=== PATIENT | female | born 1975 | race Caucasian/White ===

== ENCOUNTER → 2018-04-30 | Outpatient (CLI) | payer MEDICAID ==
[~2018-04-30] MED LIST: AC500T; AC500T PO; ACHD5005 PO; ACYC200C PO; ALPR-557 PO; ALPR1T; ALPR1T PO; AMIT25TA9 PO; BUSP5TAB59 PO; BUSPAR 15 MG PO; BUTA1TAB46; BUTA1TAB46 PO; CHLO500T4 PO; CITA-105 PO; DICL75TA2 PO; DULO30CA PO; ETOD400T PO; GABA300T PO; GABA600T2 PO; GBPN600T PO; HYDR-229 PO; HYDR-2890 PO; HYDR-3720 PO; HYDR-3820; HYDR-3820 PO; HYDR118S10 PO; HYDR1TAB PO; IBP200T; IBUP-30 PO; LORA0.5T; MELO-195 PO; METH750T3 PO; NAPR-243 PO; OXYC-12 PO; PANT40TA2 PO; PARO40TA47; PRD20T PO; PRM25T PO; PROM25TA14 PO; PROP1TAB77; QUET100T69 PO; SUCR1TAB36 PO; SULF-222 PO; TIZA4TAB55 PO; TRAM50TA2 PO; TRM50T PO
[2018-04-30 12:38] LABS: BASOPHILS # (AUTO) 0.1 10^3/uL (0.0-0.1); BASOPHILS % (AUTO) 1 % (0-10); EOSINOPHILS # (AUTO) 0.3 10^3/uL (0.0-0.3); EOSINOPHILS % (AUTO) 3 % (0-10); HEMATOCRIT 24 % (35-52); HEMOGLOBIN 7.2 G/DL (11.5-16.0); LYMPHOCYTES % (AUTO) 19 % (12-44); MEAN CORPUSCULAR HEMOGLOBIN 19 PG (25-34); MEAN CORPUSCULAR HGB CONC 30 G/DL (32-36); MEAN CORPUSCULAR VOLUME 65 FL (80-99); MEAN PLATELET VOLUME 10.4 FL (7.4-10.4); MONOCYTES # (AUTO) 0.4 X 10^3 (0.0-1.0); MONOCYTES % (AUTO) 3 % (0-12); NEUTROPHILS # (AUTO) 8.1 X 10^3 (1.8-7.8); NEUTROPHILS % (AUTO) 75 % (42-75); PLATELET COUNT 525 10^3/uL (130-400); RED BLOOD COUNT 3.75 10^6/uL (4.35-5.85); RED CELL DISTRIBUTION WIDTH 20.8 % (10.0-14.5); WHITE BLOOD COUNT 10.8 10^3/uL (4.3-11.0)
== END ==
LOC: LAB 12:24
PROVIDERS: ATTEND Family Medicine
DX: D64.9 Anemia, unspecified (principal)
CPT/HCPCS: 36415; 85025

== ENCOUNTER 2018-05-17 05:50 | Outpatient (CLI) | payer MEDICAID ==
[~2018-05-17] VITALS: Ht 170.2 cm; Wt 106.6 kg
[2018-05-17] MEDS ORDERED: AMIT25TA9 PO (13:46)
[2018-05-17] MEDS ORDERED: ESCI10TA55 PO (13:46)
[2018-05-17] MEDS ORDERED: ZONI100C3 PO (13:46)
[2018-05-17] MEDS ORDERED: TOPI200T25 PO (13:46)
[2018-05-17] MEDS ORDERED: OMEP20CA12 PO (13:46)
== END 2018-05-17 13:47 | disposition home or self-care (01) ==
LOC: PREOP 05:50
PROVIDERS: ATTEND Surgery
DX: Z01.818 Encounter for other preprocedural examination (principal)

== ENCOUNTER 2018-05-21 11:59 | Day surgery (SDC) | payer MEDICAID ==
[~2018-05-21] VITALS: Ht 170.2 cm; Wt 106.6 kg
[~2018-05-21 11:59] MED LIST changes: +ESCI10TA55 PO; +OMEP20CA12 PO; +TOPI200T25 PO; +ZONI100C3 PO
[2018-05-21] MEDS ORDERED: LACTATED RINGERS 1,000 ML IV STA (12:08)
[2018-05-21] MEDS ORDERED: HURRICAINE EXT TUBE (BENZOCAINE) XX PRN (12:15)
[2018-05-21 12:43] VITALS: BP 123/84
[2018-05-21] MEDS ORDERED: MIDAZOLAM 2 MG/2 ML (VERSED) VIAL ONE (13:03)
[2018-05-21] MEDS ORDERED: PROPOFOL INJECTION 50 ML IV ONE ×2 (13:03→13:30)
[2018-05-21] MEDS ORDERED: LIDOCAINE PF 2% 5 ML (XYLOCAINE) VIAL ONE (13:13)
--- NOTE | 2018-05-21 13:13 | Progress Note-Pre Operative ---
Pre-Operative Progress Note H&P Reviewed The H&P was reviewed, patient examined and no changes noted. Time Seen by Provider: 13:09 Date H&P Reviewed: May 21, 2018 Time H&P Reviewed: 13:10 Pre-Operative Diagnosis: Iron Deficiency Anemia JORGE BEY DO May 21, 2018 13:13
--- NOTE | 2018-05-21 13:54 | Anesthesia-General Post-Op ---
MAC Patient Condition Mental Status/LOC: Same as Preop Cardiovascular: Satisfactory Nausea/Vomiting: Absent Respiratory: Satisfactory Pain: Controlled Complications: Absent Post Op Complications Complications None Follow Up Care/Instructions Patient Instructions None needed. Anesthesiology Discharge Order Discharge Order Patient is doing well, no complaints, stable vital signs, no apparent adverse anesthesia problems. No complications reported per nursing. ALEXANDER FONTANEZ CRNA May 21, 2018 13:54
--- NOTE | 2018-05-21 13:58 | Progress Note-Post Operative ---
Post-Operative Progess Note Surgeon (s)/Preschool Head Teacher (s) Surgeon JORGE BEY DO Preschool Head Teacher: RANDELL Driscoll Pre-Operative Diagnosis Iron Deficiency Anemia Post-Operative Diagnosis Gastritis Esophagitis Internal Hemorrhoids Procedure & Operative Findings Date of Procedure 05/21/18 Procedure Performed/Findings EGD with bx Colonoscopy Anesthesia Type IV sedation by ORACLE DATABASE DEVELOPER Estimated Blood Loss Estimated blood loss (mL): scant Specimens/Packing Specimens Removed antral bx GE jxn bx JORGE BEY DO May 21, 2018 13:57
--- NOTE | 2018-05-21 13:59 | Endoscopy Discharge Instruct ---
Endo Procedure/Findings Findings 1.: Gastritis 2.: Internal Hemorrhoids Discharge Instructions - Activity: You might feel a little sleepy until tomorrow. This is due to the medicine you received to relax you. Until tomorrow, you should: NOT drive a car, operate machinery or power tools. NOT drink any alcoholic beverages. NOT make any important decisions or sign importortant papers. Do not return to work until tomorrow, unless otherwise instructed. Resume previous activities tomorrow. Diet: Start by taking liquids. If you tolerate liquids, advance to solid food. make an appointment for one week Notify Physician - If you experience excessive bleeding, unusual abdominal pain, fever, or chest pain, contact your doctor immediately. Follow-Up: - I have received and understand the above instructions and will call my doctor if I have any further questions. Patient Signature Date Nurse Signature Other (Relationship) JORGE BEY DO May 21, 2018 13:59
[2018-05-21 14:05] VITALS: BP 95/52
[2018-05-21 14:35] VITALS: BP 120/77
[2018-05-21 14:40] VITALS: BP 120/77
--- NOTE | 2018-05-22 00:29 | OPERATIVE REPORT ---
DATE OF SERVICE: PREOPERATIVE DIAGNOSIS: Iron deficiency anemia. POSTOPERATIVE DIAGNOSES: 1. Gastritis. 2. Esophagitis. 3. Internal hemorrhoids. PROCEDURES: 1. EGD with biopsy. 2. Colonoscopy. SURGEON: Clyde Blackwell DO. TRADEMARK PARALEGAL: gavin Salter student level 3. ANESTHESIA: IV sedation by the BREAKDOWN MILL OPERATOR. SPECIMEN: One biopsy from antrum, one biopsy from the GE junction. BLOOD LOSS: Scant. FLUIDS: Per anesthesia. POSTOPERATIVE CONDITION: Stable. INDICATION FOR PROCEDURE: The patient is a 42-year-old female who has some iron deficiency anemia and prior workup of his upper and lower endoscopy. FINDINGS: The patient has some gastritis and esophagitis and some internal hemorrhoids, but no obvious source of bleeding or large amount of bleeding. PROCEDURE NOTE: After informed consent was obtained, the patient was brought to the endoscopy suite and placed in the left lateral decubitus position. She was administered IV sedation by the BREAKDOWN MILL OPERATOR, then monitored her vitals the entire time, heart rate, blood pressure and pulse ox started at the upper portion started advancing the scope down the mouth through the esophagus into the stomach. Upon entering the stomach, the antrum was little bit erythematous, pushed through to the duodenum. This looked fine. Backed up into the antrum, did a biopsy at the antrum and then retroflexed to look up. Did not really appear to have a hiatal hernia, possibly a very, very small wound. Pulled the scope back up into the GE junction, looked like there may have been some esophagitis and creeping up the GE junction. I did a biopsy here and then pulled the scope up the esophagus and out the mouth. Then switched gloves, switched cameras, went down below, started the colonoscopy, inserted the scope, pushed all the way to 150 cm, able to get to the cecum, took a picture of appendiceal orifice, noted the ileocecal valve and then slowly withdrew the scope insufflating to look circumferentially at the pool looking at the cecum, up the ascending colon to hepatic flexure, then down the transverse colon to the splenic flexure, then into the descending colon down through the sigmoid and then into rectum, retroflexed in rectal vault, saw some internal hemorrhoids. No other obvious pathology was seen. I removed the scope. The patient tolerated the procedure and she has recovered in the endoscopy suite. Job ID: [id number] DocumentID: [id number] Dictated Date: 05/21/2018 13:56:57 Spindle Tester Date: 05/22/2018 00:28:58 Dictated By: CLYDE BLACKWELL DO
== END 2018-05-21 14:44 | disposition home or self-care (01) ==
LOC: ENDO 11:59
PROVIDERS: ATTEND Surgery
DX: K29.70 Gastritis, unspecified, without bleeding (principal); K20.9 Esophagitis, unspecified; K64.8 Other hemorrhoids; D50.9 Iron deficiency anemia, unspecified; R63.4 Abnormal weight loss; M48.061 Spinal stenosis, lumbar region without neurogenic claudication; Z80.3 Family history of malignant neoplasm of breast; Z80.6 Family history of leukemia

== ENCOUNTER 2018-07-30 11:27 | Outpatient (RCR) | payer MEDICAID ==
[2018-05-09 12:09] LABS: ABSOLUTE RETIC # 60 10e9/L (24-90); BASOPHILS # (AUTO) 0.1 10^3/uL (0.0-0.1); BASOPHILS % (AUTO) 1 % (0-10); EOSINOPHILS # (AUTO) 0.2 10^3/uL (0.0-0.3); EOSINOPHILS % (AUTO) 2 % (0-10); HEMATOCRIT 28 % (35-52); HEMOGLOBIN 7.7 G/DL (11.5-16.0); LYMPHOCYTES # (AUTO) 1.9 X 10^3 (1.0-4.0); LYMPHOCYTES % (AUTO) 18 % (12-44); MEAN CORPUSCULAR HEMOGLOBIN 18 PG (25-34); MEAN CORPUSCULAR HGB CONC 28 G/DL (32-36); MEAN CORPUSCULAR VOLUME 65 FL (80-99); MEAN PLATELET VOLUME 10.4 FL (7.4-10.4); MONOCYTES # (AUTO) 0.5 X 10^3 (0.0-1.0); MONOCYTES % (AUTO) 4 % (0-12); NEUTROPHILS # (AUTO) 8.1 X 10^3 (1.8-7.8); NEUTROPHILS % (AUTO) 75 % (42-75); PLATELET COUNT 519 10^3/uL (130-400); RED CELL DISTRIBUTION WIDTH 20.2 % (10.0-14.5); RETICULOCYTE % 1.41 % (0.50-2.40); WHITE BLOOD COUNT 10.8 10^3/uL (4.3-11.0)
[2018-05-09 12:31] LABS: ALANINE AMINOTRANSFERASE 35 U/L (0-55); ALBUMIN 4.5 GM/DL (3.2-4.5); ALKALINE PHOSPHATASE 172 U/L (40-136); BILIRUBIN,TOTAL 0.2 MG/DL (0.1-1.0); BUN/CREATININE RATIO 7; CALCIUM 9.4 MG/DL (8.5-10.1); CARBON DIOXIDE 23 MMOL/L (21-32); CHLORIDE 107 MMOL/L (98-107); CREATININE SERUM 0.84 MG/DL (0.60-1.30); GFR ESTIMATED > 60; GLUCOSE 98 MG/DL (70-105); POTASSIUM 4.1 MMOL/L (3.6-5.0); SODIUM 140 MMOL/L (135-145)
[~2018-07-30 11:27] MED LIST changes: +FERRIC CARBOXYMALTOSE (CANCER) 750 MG in NS (IVPB) CANCER CENTER 250 ML IV SCH; -GABA600T2 PO
[2018-07-30 11:50] LABS: BASOPHILS # (AUTO) 0.1 10^3/uL (0.0-0.1); BASOPHILS % (AUTO) 1 % (0-10); EOSINOPHILS # (AUTO) 0.3 10^3/uL (0.0-0.3); EOSINOPHILS % (AUTO) 3 % (0-10); HEMATOCRIT 37 % (35-52); HEMOGLOBIN 11.4 G/DL (11.5-16.0); LYMPHOCYTES # (AUTO) 1.8 X 10^3 (1.0-4.0); LYMPHOCYTES % (AUTO) 20 % (12-44); MEAN CORPUSCULAR HEMOGLOBIN 25 PG (25-34); MEAN CORPUSCULAR HGB CONC 31 G/DL (32-36); MEAN CORPUSCULAR VOLUME 81 FL (80-99); MEAN PLATELET VOLUME 9.9 FL (7.4-10.4); MONOCYTES # (AUTO) 0.3 X 10^3 (0.0-1.0); MONOCYTES % (AUTO) 3 % (0-12); NEUTROPHILS # (AUTO) 6.9 X 10^3 (1.8-7.8); NEUTROPHILS % (AUTO) 74 % (42-75); PLATELET COUNT 373 10^3/uL (130-400); WHITE BLOOD COUNT 9.4 10^3/uL (4.3-11.0)
[2018-07-30 12:10] LABS: ALANINE AMINOTRANSFERASE 49 U/L (0-55); ALBUMIN 4.1 GM/DL (3.2-4.5); ALKALINE PHOSPHATASE 155 U/L (40-136); BILIRUBIN,TOTAL 0.2 MG/DL (0.1-1.0); BUN/CREATININE RATIO 10; CALCIUM 8.9 MG/DL (8.5-10.1); CARBON DIOXIDE 22 MMOL/L (21-32); CHLORIDE 108 MMOL/L (98-107); CREATININE SERUM 0.83 MG/DL (0.60-1.30); GFR ESTIMATED > 60; GLUCOSE 82 MG/DL (70-105); POTASSIUM 3.7 MMOL/L (3.6-5.0); SODIUM 140 MMOL/L (135-145); TOTAL PROTEIN 7.3 GM/DL (6.4-8.2)
== END 2018-08-01 11:03 | disposition home or self-care (01) ==
LOC: ONC 11:27
PROVIDERS: ATTEND Internal Medicine Hematology & Oncology
DX: D50.9 Iron deficiency anemia, unspecified (principal); Z79.899 Other long term (current) drug therapy
CPT/HCPCS: 36415; 80053; 82728; 83540; 83883; 84155; 84165; 85025; 85045; 96365; 99213; 99214

== ENCOUNTER 2018-09-26 12:42 | Outpatient (RCR) | payer MEDICAID ==
[2018-09-24 09:54] LABS: BASOPHILS % (AUTO) 0 % (0-10); EOSINOPHILS # (AUTO) 0.2 10^3/uL (0.0-0.3); EOSINOPHILS % (AUTO) 2 % (0-10); HEMATOCRIT 37 % (35-52); HEMOGLOBIN 11.7 G/DL (11.5-16.0); LYMPHOCYTES # (AUTO) 1.8 X 10^3 (1.0-4.0); LYMPHOCYTES % (AUTO) 16 % (12-44); MEAN CORPUSCULAR HEMOGLOBIN 28 PG (25-34); MEAN CORPUSCULAR HGB CONC 32 G/DL (32-36); MEAN CORPUSCULAR VOLUME 87 FL (80-99); MEAN PLATELET VOLUME 10.2 FL (7.4-10.4); MONOCYTES # (AUTO) 0.3 X 10^3 (0.0-1.0); MONOCYTES % (AUTO) 3 % (0-12); NEUTROPHILS # (AUTO) 8.5 X 10^3 (1.8-7.8); NEUTROPHILS % (AUTO) 79 % (42-75); PLATELET COUNT 344 10^3/uL (130-400); RED CELL DISTRIBUTION WIDTH 15.9 % (10.0-14.5); WHITE BLOOD COUNT 10.9 10^3/uL (4.3-11.0)
[2018-09-24 10:18] LABS: ALANINE AMINOTRANSFERASE 73 U/L (0-55); ALKALINE PHOSPHATASE 171 U/L (40-136); BILIRUBIN,TOTAL 0.1 MG/DL (0.1-1.0); BUN/CREATININE RATIO 7; CALCIUM 9.5 MG/DL (8.5-10.1); CARBON DIOXIDE 24 MMOL/L (21-32); CHLORIDE 110 MMOL/L (98-107); CREATININE SERUM 0.83 MG/DL (0.60-1.30); GFR ESTIMATED > 60; GLUCOSE 126 MG/DL (70-105); POTASSIUM 3.4 MMOL/L (3.6-5.0); SODIUM 142 MMOL/L (135-145); TOTAL PROTEIN 6.9 GM/DL (6.4-8.2)
[~2018-09-26 12:42] MED LIST changes: -FERRIC CARBOXYMALTOSE (CANCER) 750 MG in NS (IVPB) CANCER CENTER 250 ML IV SCH
== END 2018-10-30 | disposition home or self-care (01) ==
LOC: ONC 12:42
PROVIDERS: ATTEND Internal Medicine Hematology & Oncology
DX: D50.9 Iron deficiency anemia, unspecified (principal); Z79.899 Other long term (current) drug therapy
CPT/HCPCS: 36415; 80053; 82728; 83540; 85025; 99213

== ENCOUNTER → 2018-11-26 | Outpatient (CLI) | payer MEDICAID ==
[2018-11-26 22:42] LABS: BARBITURATES URINE QUAL DS Negative; BENZODIAZEPINE URINE QUAL DS Negative
[2018-11-27 07:48] LABS: AMPHETAMINES URINE QUAL DS Negative
== END ==
LOC: LAB 09:49
PROVIDERS: ATTEND Family Medicine
DX: Z51.81 Encounter for therapeutic drug level monitoring (principal); Z79.891 Long term (current) use of opiate analgesic
CPT/HCPCS: 36415; 80307

== ENCOUNTER 2018-11-28 13:47 | Outpatient (RCR) | payer MEDICAID ==
[2018-11-26 10:40] LABS: BASOPHILS # (AUTO) 0.1 10^3/uL (0.0-0.1); BASOPHILS % (AUTO) 1 % (0-10); EOSINOPHILS # (AUTO) 0.3 10^3/uL (0.0-0.3); EOSINOPHILS % (AUTO) 3 % (0-10); HEMATOCRIT 38 % (35-52); HEMOGLOBIN 12.2 G/DL (11.5-16.0); LYMPHOCYTES # (AUTO) 1.9 X 10^3 (1.0-4.0); LYMPHOCYTES % (AUTO) 19 % (12-44); MEAN CORPUSCULAR HEMOGLOBIN 28 PG (25-34); MEAN CORPUSCULAR HGB CONC 32 G/DL (32-36); MEAN CORPUSCULAR VOLUME 87 FL (80-99); MEAN PLATELET VOLUME 10.3 FL (7.4-10.4); MONOCYTES # (AUTO) 0.3 X 10^3 (0.0-1.0); MONOCYTES % (AUTO) 3 % (0-12); NEUTROPHILS # (AUTO) 7.4 X 10^3 (1.8-7.8); NEUTROPHILS % (AUTO) 75 % (42-75); PLATELET COUNT 291 10^3/uL (130-400); RED CELL DISTRIBUTION WIDTH 15.4 % (10.0-14.5); WHITE BLOOD COUNT 9.9 10^3/uL (4.3-11.0)
[2018-11-26 11:05] LABS: ALANINE AMINOTRANSFERASE 53 U/L (0-55); ALBUMIN 4.4 GM/DL (3.2-4.5); ALKALINE PHOSPHATASE 187 U/L (40-136); BILIRUBIN,TOTAL 0.2 MG/DL (0.1-1.0); BUN/CREATININE RATIO 8; CALCIUM 9.3 MG/DL (8.5-10.1); CARBON DIOXIDE 21 MMOL/L (21-32); CHLORIDE 108 MMOL/L (98-107); CREATININE SERUM 0.97 MG/DL (0.60-1.30); GFR ESTIMATED > 60; GLUCOSE 108 MG/DL (70-105); POTASSIUM 3.8 MMOL/L (3.6-5.0); SODIUM 138 MMOL/L (135-145); TOTAL PROTEIN 8.1 GM/DL (6.4-8.2)
[~2018-11-28 13:47] MED LIST changes: -OMEP20CA12 PO; +OMEP20CA13 PO
== END 2019-02-24 | disposition home or self-care (01) ==
LOC: ONC 13:47
PROVIDERS: ATTEND Internal Medicine Hematology & Oncology
DX: D50.9 Iron deficiency anemia, unspecified (principal); Z79.899 Other long term (current) drug therapy
CPT/HCPCS: 36415; 80053; 82728; 83540; 85025; 99213

== ENCOUNTER 2019-04-17 10:48 | Outpatient (RCR) | payer MEDICAID ==
[2019-04-15 11:43] LABS: BASOPHILS # (AUTO) 0.1 10^3/uL (0.0-0.1); BASOPHILS % (AUTO) 1 % (0-10); EOSINOPHILS # (AUTO) 0.5 10^3/uL (0.0-0.3); EOSINOPHILS % (AUTO) 5 % (0-10); HEMATOCRIT 36 % (35-52); HEMOGLOBIN 11.7 G/DL (11.5-16.0); LYMPHOCYTES # (AUTO) 2.5 X 10^3 (1.0-4.0); LYMPHOCYTES % (AUTO) 23 % (12-44); MEAN CORPUSCULAR HEMOGLOBIN 28 PG (25-34); MEAN CORPUSCULAR HGB CONC 32 G/DL (32-36); MEAN CORPUSCULAR VOLUME 86 FL (80-99); MEAN PLATELET VOLUME 10.9 FL (7.4-10.4); MONOCYTES # (AUTO) 0.4 X 10^3 (0.0-1.0); MONOCYTES % (AUTO) 3 % (0-12); NEUTROPHILS # (AUTO) 7.4 X 10^3 (1.8-7.8); NEUTROPHILS % (AUTO) 69 % (42-75); PLATELET COUNT 348 10^3/uL (130-400); RED CELL DISTRIBUTION WIDTH 15.4 % (10.0-14.5); WHITE BLOOD COUNT 10.9 10^3/uL (4.3-11.0)
[2019-04-15 12:05] LABS: ALANINE AMINOTRANSFERASE 55 U/L (0-55); ALBUMIN 4.1 GM/DL (3.2-4.5); ALKALINE PHOSPHATASE 152 U/L (40-136); BILIRUBIN,TOTAL 0.2 MG/DL (0.1-1.0); BUN/CREATININE RATIO 12; CALCIUM 9.2 MG/DL (8.5-10.1); CARBON DIOXIDE 21 MMOL/L (21-32); CHLORIDE 106 MMOL/L (98-107); CREATININE SERUM 0.98 MG/DL (0.60-1.30); GFR ESTIMATED > 60; GLUCOSE 108 MG/DL (70-105); POTASSIUM 4.3 MMOL/L (3.6-5.0); SODIUM 139 MMOL/L (135-145); TOTAL PROTEIN 7.3 GM/DL (6.4-8.2)
[~2019-04-17 10:48] MED LIST changes: +OMEP-280 PO; -OMEP20CA13 PO
== END 2019-07-14 | disposition home or self-care (01) ==
LOC: ONC 10:48
PROVIDERS: ATTEND Internal Medicine Hematology & Oncology
DX: D50.9 Iron deficiency anemia, unspecified (principal); I10 Essential (primary) hypertension; M19.90 Unspecified osteoarthritis, unspecified site; R74.0 Nonspecific elevation of levels of transaminase and lactic acid dehydrogenase [LDH]; R51 Headache; Z85.3 Personal history of malignant neoplasm of breast; Z90.710 Acquired absence of both cervix and uterus; Z98.890 Other specified postprocedural states
CPT/HCPCS: 36415; 80053; 82728; 83540; 85025; 99213

== ENCOUNTER 2019-08-21 12:43 | Outpatient (RCR) | payer MEDICAID ==
[2019-08-19 14:15] LABS: BASOPHILS % (AUTO) 0 % (0-10); EOSINOPHILS # (AUTO) 0.3 10^3/uL (0.0-0.3); EOSINOPHILS % (AUTO) 3 % (0-10); HEMATOCRIT 38 % (35-52); HEMOGLOBIN 11.9 G/DL (11.5-16.0); LYMPHOCYTES # (AUTO) 2.6 X 10^3 (1.0-4.0); LYMPHOCYTES % (AUTO) 22 % (12-44); MEAN CORPUSCULAR HEMOGLOBIN 28 PG (25-34); MEAN CORPUSCULAR HGB CONC 31 G/DL (32-36); MEAN CORPUSCULAR VOLUME 88 FL (80-99); MEAN PLATELET VOLUME 10.4 FL (7.4-10.4); MONOCYTES # (AUTO) 0.6 X 10^3 (0.0-1.0); MONOCYTES % (AUTO) 5 % (0-12); NEUTROPHILS # (AUTO) 8.3 X 10^3 (1.8-7.8); NEUTROPHILS % (AUTO) 70 % (42-75); PLATELET COUNT 334 10^3/uL (130-400); RED CELL DISTRIBUTION WIDTH 15.6 % (10.0-14.5)
[2019-08-19 14:34] LABS: ALBUMIN 4.3 GM/DL (3.2-4.5); BILIRUBIN,TOTAL 0.2 MG/DL (0.1-1.0); CALCIUM 11.1 MG/DL (8.5-10.1); CREATININE SERUM 1.07 MG/DL (0.60-1.30); POTASSIUM 4.4 MMOL/L (3.6-5.0); TOTAL PROTEIN 7.8 GM/DL (6.4-8.2)
[~2019-08-21 12:43] MED LIST changes: +ACHYD1T; +ACHYD1T PO; -HYDR-3820; -HYDR-3820 PO; -OMEP-280 PO; +OMEP20CA18 PO; +QUET100T33 PO; -QUET100T69 PO; +ZONI100C29 PO; -ZONI100C3 PO
== END 2019-11-17 | disposition home or self-care (01) ==
LOC: ONC 12:43
PROVIDERS: ATTEND Internal Medicine Hematology & Oncology
DX: D50.9 Iron deficiency anemia, unspecified (principal); I10 Essential (primary) hypertension; M19.90 Unspecified osteoarthritis, unspecified site; R74.0 Nonspecific elevation of levels of transaminase and lactic acid dehydrogenase [LDH]; R51 Headache; Z85.3 Personal history of malignant neoplasm of breast; Z90.710 Acquired absence of both cervix and uterus; Z98.890 Other specified postprocedural states; E83.52 Hypercalcemia
CPT/HCPCS: 80053; 82728; 83540; 85025; 99213

== ENCOUNTER → 2021-07-12 | Outpatient (CLI) | payer MEDICAID ==
[~2021-07-12] MED LIST changes: +ESCI-2 PO; -ESCI10TA55 PO; -ETOD400T PO; +ETOD400T3 PO
--- NOTE | 2021-07-12 13:00 | Diagnostic Imaging Report ---
Indication: Fall with left ankle injury and pain AP, oblique and lateral views of the left ankle are obtained. Comparison is made to study of 01/05/2011 No fracture or malalignment is identified. There is no lytic or sclerotic focus. There has been development of enthesophytes along the posterior and plantar aspect of the calcaneus. IMPRESSION: No acute abnormality. Dictated by: Dictated on workstation # [id number]
--- NOTE | 2021-07-12 13:02 | Diagnostic Imaging Report ---
INDICATION: Left foot pain for 2 weeks. TIME OF EXAM: 12:47 PM 3 views of the left foot were obtained. Metatarsals and phalanges are intact. Midfoot and hindfoot are unremarkable apart from a plantar calcaneal spur. No fractures are seen. IMPRESSION: No acute bony abnormality is detected. Dictated by: Dictated on workstation # [id number]
== END ==
LOC: RAD 12:00
PROVIDERS: ATTEND Family Medicine
DX: S99.912A Unspecified injury of left ankle, initial encounter (principal); X58.XXXA Exposure to other specified factors, initial encounter
CPT/HCPCS: 73610; 73630

== ENCOUNTER → 2023-01-18 | Outpatient (CLI) | payer MEDICAID ==
[~2023-01-18] MED LIST changes: -ZONI100C29 PO; +ZONI100C79 PO
--- NOTE | 2023-01-18 14:53 | Diagnostic Imaging Report ---
PROCEDURE: US carotid duplex, bilateral. TECHNIQUE: Multiple real-time grayscale images were obtained over the carotid arteries in various projections, bilaterally. Additional spectral analysis and color Doppler duplex images were also obtained. INDICATION: Paresthesias. COMPARISON: None FINDINGS: The bilateral common carotid arteries are normal in course and caliber. There is minimal eccentric hypoechoic plaque of the left carotid bulb. Grayscale and color flow images show no focal significant stenosis based on NASCET criteria. Peak systolic velocities and ratios are within normal. Vertebral arteries show normal antegrade flow bilaterally. Note is made of mixed solid cystic thyroid nodule in the right. Area of concern measures 3.2 x 2.4 x 1.9 cm. IMPRESSION: 1. Minimal atherosclerotic disease of the left carotid bulb. No focal significant stenosis. 2. Right thyroid nodule. Further characterization with dedicated thyroid sonogram is advised when clinically appropriate. Parameters based on the consensus panel Vera-Scale and Doppler ultrasound criteria published April 2003, Radiology, Volume 229. DOPPLER (peak systolic velocity M/S Right Left CCA .75 .84 ICA Proximal .60 .60 ICA Mid .74 .70 ICA Distal .66 .76 RATIO .99 .90 ECA .89 .82 VERT .53 .56 Dictated by: Dictated on workstation # [id number]
== END ==
LOC: RAD 11:24
PROVIDERS: ATTEND Family Medicine
DX: R20.2 Paresthesia of skin (principal); R20.0 Anesthesia of skin; E04.1 Nontoxic single thyroid nodule
CPT/HCPCS: 93880

== ENCOUNTER → 2023-02-07 | Outpatient (CLI) | payer MEDICAID ==
--- NOTE | 2023-02-07 11:30 | Diagnostic Imaging Report ---
PROCEDURE: US Thyroid. TECHNIQUE: Multiple real-time grayscale images were obtained of the thyroid in various projections. INDICATION: Incidentally noted right thyroid mass at a prior carotid Doppler. This study is performed as its further evaluation. The right thyroid lobe measured 4.5 x 2.3 x 2.3 cm and contains a upper pole mixed solid cystic mass with a solid component vascularized and in aggregate the lesion measured 3.4 x 1.6 x 2.0 cm, its solid component mildly hypoechoic and overall would be characterized as a TI-RADS 3 lesion and given its size, consideration for fine needle aspiration biopsy recommended. Left thyroid lobe 5.2 x 1.2 x 1.7 cm. Nonfocal. IMPRESSION: Mixed solid cystic right lobe thyroid mass with its solid component hypoechoic, vascularized and the lesion measuring 3.4 cm is a TI-RADS 3 mass and given its size should be considered for fine-needle aspiration biopsy. Dictated by: Dictated on workstation # [id number]
== END ==
LOC: RAD 07:47
PROVIDERS: ATTEND Family Medicine
DX: E04.1 Nontoxic single thyroid nodule (principal)
CPT/HCPCS: 76536

== ENCOUNTER → 2023-02-24 | Outpatient (CLI) | payer MEDICAID ==
[~2023-02-24] VITALS: Ht 175.3 cm; Wt 136.4 kg
[~2023-02-24] MED LIST changes: +LIDOCAINE 1% INJ 10 ML VIAL INJ ONE; +LIDOCAINE 1% INJ 10 ML VIAL ONE
--- NOTE | 2023-02-24 09:50 | Diagnostic Imaging Report ---
INDICATION: Right thyroid mass. Patient presents for ultrasound-guided fine needle aspiration. Patient brought to the procedure room placed on table in the supine position. Ultrasound imaging of the right neck was performed to evaluate appropriate entry site. The neck was then prepped and draped in the usual sterile fashion. Small amount of 1% lidocaine was utilized for local anesthesia. A total of 4 passes were made into the mixed solid and cystic dominant mass right lobe of thyroid utilizing 25-gauge needles and fine-needle aspiration technique. Hemostasis was obtained. Patient tolerated procedure well and left the department in stable condition. IMPRESSION: Successful ultrasound-guided fine-needle aspiration of the dominant mixed cystic and solid mass right lobe of thyroid. Pathology results are currently pending. Dictated by: Dictated on workstation # [id number]
== END ==
LOC: RAD 08:12
PROVIDERS: ATTEND Family Medicine
DX: E04.1 Nontoxic single thyroid nodule (principal)
CPT/HCPCS: 10005